=== PATIENT | male | born 1955 | race African-American/Black ===

== ENCOUNTER 2016-07-10 10:06 | Emergency (ER) | payer OTHER, MEDICAID ==
[~2016-07-10] VITALS: Ht 182.9 cm; Wt 86.2 kg
[~2016-07-10 10:06] MED LIST: BENADRYL50 MG ORAL; HYDROCORTISON28.4 G2 TP
[2016-07-10] MEDS ORDERED: Ketorolac 30mg Inj IM ONE (10:45)
[2016-07-10] MEDS ORDERED: DuoNeb 0.5-3(2.5)mg/3ml neb HHN ONE (11:45)
--- NOTE | 2016-07-10 11:55 | Diagnostic Imaging Report ---
Indications: Right shoulder pain decreased range of motion Technique: 3 views of the right shoulder Findings: Comparison: None No fracture, dislocation, lytic destruction, periosteal reaction, surrounding soft tissue swelling, or other acute change is demonstrated. Mild spurring at margins of the acromioclavicular joint. Glenohumeral joint unremarkable. Small subcortical cystic lucency greater tuberosity humeral head. No other chronic change is demonstrated. IMPRESSION: No evidence of acute abnormality Mild acromioclavicular degenerative arthropathy Small cyst greater tuberosity humeral head likely degenerative
[2016-07-10] MEDS ORDERED: ALBUTEROL SULF8.5 GM INH (11:59)
[2016-07-10] MEDS ORDERED: TRAMADOL HCL50 MG ORAL (11:59)
[2016-07-10 12:11] VITALS: BP 136/75
--- NOTE | 2016-07-13 20:58 | Emergency Room Report ---
History of Present Illness General Chief Complaint: Upper Extremity Injury Source: Patient Present Illness HPI Patient is a 60-year-old male presented after increased right shoulder pain for several weeks. Patient gradual onset of symptoms. Patient reported having severe pain which would wake him from sleep. The patient reported being a smoker. He denied any weight loss. Patient any fever. He denied any recent trauma. The patient was having some difficulty with lifting his arm above his head. He denied any shortness of breath. The patient reported having a nonproductive cough. Allergies: Coded Allergies: CODEINE (Unverified Allergy, Unknown, 09/14/14) Patient History Past Medical History: see triage record Reviewed Nursing Documentation: PMH: Agreed, PSxH: Agreed Nursing Documentation-PMH Past Medical History: No History, Except For Hx Asthma: Yes Review of Systems All Other Systems: negative except mentioned in HPI Physical Exam Vital Signs Date Time Temp Pulse Resp B/P Pulse Ox O2 Delivery O2 Flow Rate FiO2 07/10/16 10:22 97.9 61 18 131/74 98 Room Air 07/10/16 11:40 21 07/10/16 11:55 21.0 General Appearance: well appearing, no apparent distress, alert, GCS 15 Head: normocephalic, atraumatic ENT: hearing grossly normal, normal voice Neck: full range of motion, supple Respiratory: no respiratory distress, speaking full sentences, wheezing Cardiovascular #1: regular rate, rhythm, no edema Gastrointestinal: normal inspection, normal bowel sounds, soft Musculoskeletal: no calf tenderness, decreased range of mation - right shoulder decreased abduction greater than 90 degrees, other - tenderness to posterior shoulder Neurologic: alert, oriented x3, responsive, physician industrial III-XII nml as tested, normal gait Psychiatric: mood/affect normal Skin: no rash Medical Decision Making Diagnostic Impression: Primary Impression: Shoulder pain, right ER Course Patient presented for shoulder pain. Differential diagnoses included was not limited to fracture, tumor, dislocation, a.c. separation, septic joint. X-ray imaging of the right shoulder 3 views interpreted by radiology showed a cystic lesion in the proximal humerus. There is normal bony alignment without evident fracture. The patient was given Toradol for pain. The patient was placed in a sling. Patient was given breathing treatment due to wheezing with improvement. The patient was advised followup with his primary care physician for further workup of right shoulder cyst.The patient is advised to follow up with primary care doctor in 2-3 days. Patient was advised that he may require MRI. Patient is advised to return if any worsening condition or if any changes in status that are concerning. Last Vital Signs Date Time Temp Pulse Resp B/P Pulse Ox O2 Delivery O2 Flow Rate FiO2 07/10/16 12:11 60 16 136/75 97 Room Air 21.0 21 07/10/16 12:09 97.8 Status: improved Disposition: HOME, SELF-CARE Condition: Stable Scripts Albuterol Sulfate* (ALBUTEROL SULFATE MDI*) 8.5 Gm Hfa.aer.ad 2 PUFF INH Q4H Y for cough/wheezing, #1 EA 0 Refills Prov: Biju Wilkins 07/10/16 Tramadol Hcl* (ULTRAM*) 50 Mg Tablet 50 MG ORAL Q6H Y for For Pain, #20 TAB 0 Refills Prov: Biju Wilkins 07/10/16 Patient Instructions: Shoulder Pain, Shoulder Range of Motion Exercises Biju Wilkins Jul 13, 2016 20:58
--- NOTE | 2016-07-17 14:56 | Diagnostic Imaging Report ---
Indication: Chest pain Technique: Single portable AP view of the chest. Findings: Comparison: None. The bones and extra pulmonary soft tissues, cardiomediastinal silhouette, pulmonary vasculature and parenchyma, and pleural surfaces are unremarkable. IMPRESSION: Negative portable AP chest.
== END 2016-07-10 12:22 | disposition home or self-care (01) ==
LOC: EMR 10:50
DX: M25.511 Pain in right shoulder (principal); Z87.891 Personal history of nicotine dependence; Z88.6 Allergy status to analgesic agent
CPT/HCPCS: 71010; 73030; 94640; 94664; 96372; 99283; J1885; J7620